=== PATIENT | male | born 1945 | race Caucasian/White ===

== ENCOUNTER 2016-07-11 12:23 | Day surgery (SDC) | payer MEDICARE ==
--- OUTSIDE RECORDS SUMMARY | 2016-07-11 12:26 | XMS REPORT | Continuity of Care Document ---
:1945 Author Organization [facility] ([facility]) Address [address] [place] [address] Phone [phone] Care Team Providers Name Role Phone Ramiro Rendon Primary Care Provider [phone] Source Comments This disclosure is being made pursuant to the Care Everywhere program, applicable federal and state laws, and may not contain all informaitonavailable regarding this patient.[facility] ([facility]) Active Allergies and Adverse Reactions No Known Allergies Current Medications Prescription Sig. Disp. Refills Start Date End Date Status meclizine 25 mg tablet take 1 tablet by 11/25/2013 Active oral route every day glucosamine sulfate Take 1,000 mg by Active 1,000 mg capsule mouth daily multivitamin tablet Take 1 tablet by Active mouth daily cholecalciferol (VITAMIN Take 1 tablet by Active D3) PO mouth daily ascorbic acid (VITAMIN Take 1 tablet by Active C) PO mouth daily vitamin B complex tablet Take 1 tablet by Active mouth daily HYDROCODONE/ACETAMINOPHE Take 1 tablet by Active N (VICODIN PO) mouth as needed pantoprazole 40 mg EC Take 40 mg by Active tablet mouth daily felodipine 10 mg XR Take 10 mg by Active tablet mouth daily sotalol 80 mg tablet Take 1 tablet 60 tablet 6 12/26/2014 Active (80 mg total) by mouth 2 times daily rivaroxaban (XARELTO) 20 Take 1 tablet 30 tablet 6 12/26/2014 Active mg tablet (20 mg total) by mouth every evening with dinner Active Problems Problem Noted Date Abnormal ankle brachial index 12/07/2014 Overview: Left 0.4, R 0.9 on 12/07/14 Essential hypertension 11/08/2014 Aortic regurgitation 11/08/2014 skilled nursing (current) use of anticoagulants 11/06/2014 Paroxysmal atrial fibrillation 11/03/2014 Social History Tobacco Use Types Packs/Day Years Used Date Former Smoker Quit: 11/04/2014 Smokeless Tobacco: Never Used Tobacco Cessation:Counseling Given: Yes Comments: Alcohol Use Drinks/Week oz/Week Comments No Last Filed Vital Signs Vital Sign Reading Time Taken Blood Pressure 110/70 11/23/2015 11:33 AM CDT Pulse 56 11/23/2015 11:33 AM CDT Temperature 36.6 C (97.9 F) 12/07/2014 10:38 AM CDT Respiratory Rate 18 11/10/2014 12:09 PM CDT Height 1.803 m (5' 10.98") 11/23/2015 11:33 AM CDT Weight 78.019 kg (172 lb) 11/23/2015 11:33 AM CDT Body Mass Index 24 11/23/2015 11:33 AM CDT Oxygen Saturation 99% 11/06/2014 4:36 PM CDT Plan of Care Date Type Specialty Providers Description 12/05/2016 Appointment Heart [facility] Vascular Gopi Farnsworth, Chief Comp: Patient MD Reported Reason For [address] [place] [address] [phone] (Fax) Health Maintenance Due Date Last Done Comments HCV Screening 1945 Hepatitis B Vaccine (1 of 3 - Primary Series) 1945 Tdap Vaccine 1957 Lipid Disorder Screening 01/14/1964 Td Vaccine 01/14/1964 Colonoscopy 1996 Prostate Cancer Screening 01/14/1996 Zoster Vaccine 2006 AAA Screening 2011 Pneumococcal Vaccine (1 of 2 - PCV13) 2011 Influenza Vaccine: Seasonal (#1) 10/10/2015 Results from Last 3 Months Not on file
[2016-07-11 12:54] VITALS: BP 122/65
== END 2016-07-11 12:24 | disposition home or self-care (01) ==
LOC: AMB 12:23
PROVIDERS: ATTEND Urology
DX: Z53.29 Procedure and treatment not carried out because of patient's decision for other reasons (principal)

== ENCOUNTER 2016-08-27 10:20 | Emergency (ER) | payer MEDICARE ==
[2016-08-27 10:31] VITALS: BP 137/73
--- OUTSIDE RECORDS SUMMARY | 2016-08-27 11:13 | XMS REPORT | Continuity of Care Document ---
:1945 Author Organization [facility] ([facility]) Address [address] [place] [address] Phone [phone] Care Team Providers Name Role Phone Ramiro Rendon Primary Care Provider [phone] Source Comments This disclosure is being made pursuant to the Care Everywhere program, applicable federal and state laws, and may not contain all informaitonavailable regarding this patient.[facility] ([facility]) Active Allergies and Adverse Reactions No Known [...] 12/07/14 Essential hypertension 11/08/2014 Aortic regurgitation 11/08/2014 USP (current) use of anticoagulants 11/06/2014 Paroxysmal atrial [...] Reported Reason For [address] [place] [address] [phone] (Fax) Health Maintenance Due Date Last Done [...]
== END 2016-08-27 10:30 | disposition home or self-care (01) ==
LOC: ER 10:20
DX: Z13.6 Encounter for screening for cardiovascular disorders (principal)

== ENCOUNTER 2016-11-24 14:03 | Emergency (ER) | payer MEDICARE ==
[2016-11-24 14:15] VITALS: BP 144/73
== END 2016-11-24 14:12 | disposition home or self-care (01) ==
LOC: ER 14:03
DX: Z13.6 Encounter for screening for cardiovascular disorders (principal)